=== PATIENT | male | born 1955 | race American Indian/Alaskan Native ===

== ENCOUNTER 2018-01-09 15:19 | Emergency (ER) | payer OTHER ==
[2018-01-09] MEDS ORDERED: NORVASC PO ONE (15:42)
[2018-01-09] MEDS ORDERED: NORVASC ONE (15:44)
--- NOTE | 2018-01-09 16:25 | Emergency Department Report ---
HPI - General Chief Complaint: High BP Time Seen by Provider: 01/09/18 16:13 - HPI HPI: Room 26 The patient is a 62-year-old male presenting with a chief complaint of hypertension and lightheadedness. The patient states 2 weeks ago he noticed blood pressure been trending upwards. Patient states he felt lightheaded for 1 day and then resolved. The patient states he went in today to see his primary physician to have his medication refill he was found to be hypertensive at 200/ 120. Patient states she began feeling lightheaded again and was sent to the ED. Patient denies headache or pain of any type. Patient denies shortness of breath or fever. Location: [See above] Duration: Intermittent 2 weeks Quality: Lightheadedness Severity: Moderate Modifying factors: [see above] Context: [see above] Mode of transportation: Unknown ED Past Medical Hx - Past Medical History Previous Medical History?: Yes Hx Hypertension: Yes Additional medical history: Gout - Surgical History Past Surgical History?: No - Family History Family history: no significant - Social History Smoking Status: Former Smoker (none since April 2017) Substance Use Type: None (denies illicit drug use) - Medications Home Medications: Home Medications Medication Instructions Recorded Confirmed Last Taken Type Atorvastatin [Lipitor] 40 mg PO DAILY 01/09/18 01/09/18 Unknown History Lisinopril [Zestril] 40 mg PO DAILY 01/09/18 01/09/18 Unknown History Losartan/Hydrochlorothiazide 1 each PO DAILY 01/09/18 01/09/18 Unknown History [Losartan-Hctz 100-25 mg Tab] Nebivolol HCl [Bystolic] 20 mg PO DAILY 01/09/18 01/09/18 Unknown History amLODIPine [Norvasc] 10 mg PO DAILY #90 tablet 01/09/18 Unknown Rx ED Review of Systems ROS: Stated complaint: HBP Other details as noted in HPI Constitutional: denies: fever Eyes: denies: eye pain ENT: denies: throat pain Respiratory: no symptoms reported Cardiovascular: other (hypertension). denies: chest pain Endocrine: no symptoms reported Gastrointestinal: denies: abdominal pain Genitourinary: denies: dysuria Musculoskeletal: denies: back pain Neurological: other (lightheadedness). denies: headache Physical Exam - Physical Exam Vital Signs: Vital Signs 01/09/18 01/09/18 15:31 15:42 Temperature 97.7 F Pulse Rate 71 Respiratory 18 Rate Blood Pressure 221/130 221/130 O2 Sat by Pulse 99 Oximetry Physical Exam: GENERAL: The patient is well-developed well-nourished male lying on stretcher not appearing to be in acute distress. [] HEENT: Normocephalic. Atraumatic. Extraocular motions are intact. Patient has moist mucous membranes. There is no nystagmus NECK: Supple. No meningitic signs are noted. Trachea midline CHEST/LUNGS: Clear to auscultation. There is no respiratory distress noted. HEART/CARDIOVASCULAR: Regular. There is no tachycardia. There is no gallop rub or murmur. ABDOMEN: Abdomen is soft, nontender. Patient has normal bowel sounds. There is no abdominal distention. SKIN: There is no rash. There is no edema. There is no diaphoresis. NEURO: The patient is awake, alert, and oriented. The patient is cooperative. The patient has no focal neurologic deficits. The patient has normal speech. Cranial nerves II through XII grossly intact, no drift. No dysmetria noted with finger to nose bilaterally MUSCULOSKELETAL: There is no evidence of acute injury. ED Course Vital Signs 01/09/18 01/09/18 15:31 15:42 Temperature 97.7 F Pulse Rate 71 Respiratory 18 Rate Blood Pressure 221/130 221/130 O2 Sat by Pulse 99 Oximetry - Reevaluation(s) Reevaluation #1: 01/09/18 18:06 Blood pressure has improved to systolic in 170s. Patient states he feels good ED Medical Decision Making - EKG Data -: EKG Interpreted by Or EKG shows normal: sinus rhythm Rate: normal - EKG Data When compared to previous EKG there are: previous EKG unavailable Interpretation: nonspecific ST-T wave calvin (T inversion in lead aVL) - Radiology Data Radiology results: report reviewed (CT head), image reviewed (CT head) Findings [facility] [address] [place] [address] Cat Scan Report Signed Patient: CHRISTOPHER SEQUEIRA MR#: [id number] : 1955 Acct:[id number] Age/Sex: 62 / M ADM Date: 01/09/18 Loc: ED Attending Dr: Ordering Physician: ARIC OVALLE MD Date of Service: 01/09/18 Procedure(s): CT head/brain wo con Accession Number(s): [id number] cc: ARIC OVALLE MD FINAL REPORT EXAM: CT HEAD/BRAIN WO CON HISTORY: hypertension, dizziness TECHNIQUE: 2.5 millimeter axial images from the skullbase to the vertex. Comparison: None FINDINGS: There is no evidence of an acute intracranial process, intracranial hemorrhage or mass effect. The ventricles are normal size. The visualized portions of the orbits, paranasal and mastoid sinuses are unremarkable. The bony structures are unremarkable in appearance. IMPRESSION: 1. No evidence of an acute intracranial process, intracranial hemorrhage or mass effect. Transcribed By: ED Dictated By: ANTOLIN BUCK MD Electronically Authenticated By: ANTOLIN BUCK MD Signed Date/Time: 01/09/181648 DD/ 48 TD/TT: 01/09/181648 - Differential Diagnosis hypertensive urgency, lightheadedness, ICH, vertigo Critical care attestation.: If time is entered above; I have spent that time in minutes in the direct care of this critically ill patient, excluding procedure time. ED Disposition Clinical Impression: Hypertensive urgency Disposition: DC-01 TO HOME OR SELFCARE Is pt being admited?: No Does the pt Need Aspirin: No Condition: Stable Instructions: Hypertension (ED) Additional Instructions: Return to the emergency department immediately should you develop worsening symptoms, fever, inability to tolerate food or liquid or any other concerns. Prescriptions: amLODIPine [Norvasc] 10 mg PO DAILY #90 tablet Referrals: PRIMARY CAREMD [Primary Care Provider] - 3-5 Days Time of Disposition: 18:07
[2018-01-09] MEDS ORDERED: CATAPRES PO ONE (16:44)
--- NOTE | 2018-01-09 16:50 | Cat Scan Report ---
FINAL REPORT EXAM: CT HEAD/BRAIN WO CON HISTORY: hypertension, dizziness TECHNIQUE: 2.5 millimeter axial images from the skullbase to the vertex. Comparison: None FINDINGS: There is no evidence of an acute intracranial process, intracranial hemorrhage or mass effect. The ventricles are normal size. The visualized portions of the orbits, paranasal and mastoid sinuses are unremarkable. The bony structures are unremarkable in appearance. IMPRESSION: 1. No evidence of an acute intracranial process, intracranial hemorrhage or mass effect.
[2018-01-09 18:06] VITALS: BP 176/108
== END 2018-01-09 18:16 | disposition home or self-care (01) ==
LOC: ED 15:19
DX: I10 Essential (primary) hypertension (principal); M10.9 Gout, unspecified; Z87.891 Personal history of nicotine dependence; Z88.8 Allergy status to other drugs, medicaments and biological substances
CPT/HCPCS: 70450; 93005; 93010; 99283